=== PATIENT | female | born 1975 | race Caucasian/White ===

== ENCOUNTER 2018-09-06 21:09 | Emergency (ER) | payer OTHER ==
--- NOTE | 2018-09-06 21:14 | UC ---
Lower Extremity/Ankle HPI - HPI Summary HPI Summary: 43 yo female presents with RIGHT foot and ankle pain. She tells me that she was at work around 0900 and stepped on a ledge inverting her ankle. [place] a pop, but only had mild pain and continued working all day today until this evening. She is able to weight bear without a limp. Denies numbness or tingling. Has not taken anything OTC for her discomfort - History of Current Complaint Stated Complaint: ANKLE INJURY Hx Obtained From: Patient Onset/Duration: Sudden Onset Severity Initially: Severe Severity Currently: Severe Pain Intensity: 9 Pain Scale Used: 0-10 Numeric Aggravating Factor(s): Standing, Ambulation Able to Bear Weight: Yes Related History: Occupational Injury - Allergies/Home Medications Allergies/Adverse Reactions: Allergies Allergy/AdvReac Type Severity Reaction Status Date / Time pseudoephedrine Allergy Dizziness Verified 09/06/18 21:30 [From [facility]] Home Medications: Home Medications Albuterol HFA INHALER* [Ventolin HFA Inhaler*] 2 puff PO Q6H PRN 09/06/18 [ History Confirmed 09/06/18] Cyanocobalamin INJ * [Vitamin B12 INJ *] 1,000 mcg IM MONTHLY 09/06/18 [History Confirmed 09/06/18] Folic Acid TAB* [Folvite TAB*] 1 mg PO DAILY 09/06/18 [History Confirmed ] Losartan/Hydrochlorothiazide [Losartan-Hctz 100-25 mg Tab] 1 tab PO DAILY [History Confirmed 09/06/18] Montelukast Sodium TAB* [Singulair 5 mg TAB*] 5 mg PO DAILY 09/06/18 [History Confirmed 09/06/18] Potassium Chloride [Klor-Con 8] 8 meq PO DAILY 09/06/18 [History Confirmed 09/06] Ranitidine TAB (NF) [Zantac TAB (NF)] 150 mg PO DAILY 09/06/18 [History Confirmed 09/06/18] PMH/Surg Hx/FS Hx/Imm Hx Cardiovascular History: Hypertension Respiratory History: Asthma GI/ History: Gastroesophageal Reflux - Surgical History Surgical History: None - Family History Known Family History: Positive: Hypertension - Social History Occupation: Employed Full-time Lives: With Family Alcohol Use: Occasionally Substance Use Type: None Smoking Status (MU): Never Smoked Tobacco Review of Systems Constitutional: Negative Skin: Negative Respiratory: Negative Cardiovascular: Negative Neurovascular: Negative Musculoskeletal: Other: - Right ankle and foot pain Neurological: Negative Psychological: Negative All Other Systems Reviewed And Are Negative: Yes Physical Exam - Summary Physical Exam Summary: GENERAL: NAD. WDWN. No pain distress. SKIN: No rashes, sores, lesions, or open wounds. CHEST: No accessory muscle use. Breathing comfortably and in no distress. CV: Pulses intact PT and DP. Cap refill <2seconds MSK: RIGHT ANKLE: Generalized TTP about whole ankle. FROM. No edema or obvious deformity. Strength 5/5. Negative talar tilt. No increased laxity. RIGHT FOOT: Generalized TTP about dorsum of entire foot. No 5th MT pain. NEURO: Alert. Sensations intact and symmetric B/L LEs PSYCH: Age appropriate behavior. Triage Information Reviewed: Yes Vital Signs: Vital Signs: Temp Pulse Resp BP Pulse Ox 99.3 F 96 20 135/84 97 09/06/18 21:24 09/06/18 21:24 09/06/18 21:24 09/06/18 21:24 09/06/18 21:24 Vital Signs Reviewed: Yes Lower Extremity Course/Dx - Course Course Of Treatment: XR: No radiologist reading after 1800, therefore wet read by mean is questionable avulsion fracture of proximal 5th MT. I discussed this with the pt and recommended a walking boot, however she has no tenderness in this area and prefer not to wear the walking boot. I will provide the boot to her and have her f/u with Occupational Medicine/Orthopedics in [place] as this is much closer to her home. - Differential Dx/Diagnosis Provider Diagnoses: Right foot pain Discharge - Sign-Out/Discharge Documenting (check all that apply): Patient Departure All imaging exams completed and their final reports reviewed: No - Discharge Plan Condition: Stable Disposition: HOME Patient Education Materials: Arthralgia (ED) Forms: *Work Release Referrals: Hallie Oconnor NP [Primary Care Provider] - Alicia PORTER,Dann Larry [Medical Doctor] - As Soon As Possible Additional Instructions: If you develop a fever, shortness of breath, chest pain, new or worsening symptoms - please call your PCP or go to the ED. 1) Rest, Ice, and elevate your foot as much as possible 2) Please use the walking boot as much as possible Please call Occupational Medicine at the number below to schedule a follow up appointment as soon as possible - Billing Disposition and Condition Condition: STABLE Disposition: Home
[2018-09-06 21:30] VITALS: BP 135/84
--- NOTE | 2018-09-07 08:20 | RAD ---
HISTORY: Pain, right foot pain and ankle pain, status post fall COMPARISONS: None VIEWS: 5 , Frontal, lateral, and oblique views of the right ankle and frontal and lateral views of the right foot FINDINGS: BONE DENSITY: Normal. BONES: There is no displaced fracture. There are posterior calcaneal enthesophytes. JOINTS: There is no arthropathy. ALIGNMENT: There is no dislocation. SOFT TISSUES: Unremarkable. OTHER FINDINGS: None. IMPRESSION: NO ACUTE OSSEOUS INJURY. IF SYMPTOMS PERSIST, RECOMMEND REPEAT IMAGING. R1
--- NOTE | 2018-09-07 09:54 | UC ---
- Progress Note Progress Note: XR: IMPRESSION: NO ACUTE OSSEOUS INJURY. IF SYMPTOMS PERSIST, RECOMMEND REPEAT IMAGING. Please call pt and let her know that her XR was negative. She may use the walking boot as needed for added support and comfort. F/u with occupational medicine as directed at visit yesterday Discharge - Sign-Out/Discharge Documenting (check all that apply): Post-Discharge Follow Up All imaging exams completed and their final reports reviewed: Yes - Discharge Plan Condition: Stable Disposition: HOME Patient Education Materials: Arthralgia (ED) Forms: *Work Release Referrals: Alicia PORTER,Dann Larry [Medical Doctor] - As Soon As Possible Hallie Oconnor COMFORT ADVISOR [Primary Care Provider] - Additional Instructions: If you develop a fever, shortness of breath, chest pain, new or worsening symptoms - please call your PCP or go to the ED. 1) Rest, Ice, and elevate your foot as much as possible 2) Please use the walking boot as much as possible Please call Occupational Medicine at the number below to schedule a follow up appointment as soon as possible - Billing Disposition and Condition Condition: STABLE Disposition: Home
== END 2018-09-06 22:09 | disposition home or self-care (01) ==
LOC: UCEAST 21:09
DX: M79.671 Pain in right foot (principal); I10 Essential (primary) hypertension; J45.909 Unspecified asthma, uncomplicated; K21.9 Gastro-esophageal reflux disease without esophagitis; Z88.8 Allergy status to other drugs, medicaments and biological substances; Z82.49 Family history of ischemic heart disease and other diseases of the circulatory system
CPT/HCPCS: 99202; G0463